=== PATIENT | male | born 2000 | race Caucasian/White ===

== ENCOUNTER 2019-01-21 21:22 | Emergency (ER) | payer BC ==
[2019-01-21] MEDS: Tetracaine HCl/PF 0.5% 4 ML Bottle EYERT ONE (21:59)
[2019-01-21] MEDS: Balanced Salt Solution Ophth Irrig 30 ML Bottle EYERT ONE (21:59)
--- NOTE | 2019-01-21 22:11 | EDM.PDOC ---
ED HPI GENERAL MEDICAL PROBLEM - General Chief Complaint: Eye Problems Stated Complaint: right eye foreign body Time Seen by Provider: 01/21/19 21:30 Source of Information: Reports: Patient History Limitations: Reports: No Limitations - History of Present Illness INITIAL COMMENTS - FREE TEXT/NARRATIVE: Patient is a 19-year-old was brought in by dad with foreign body right eye he was working with a black powder gun felt something go into the eye and then noticed a black dot on the inner aspect of the sclera right eye. Onset: Today Duration: Hour(s):, Constant Location: Reports: Face (Eyes) Quality: Reports: Ache Severity: Mild Improves with: Reports: None Worsens with: Reports: None Associated Symptoms: Reports: No Other Symptoms Right Eye Pain Score (Numeric/FACES): 1 - Related Data Allergies Allergy/AdvReac Type Severity Reaction Status Date / Time No Known Allergies Allergy Verified 01/21/19 21:28 Home Meds: Home Meds . [No Known Home Meds] 01/21/19 [History] Social & Family History - Tobacco Use Smoking Status *Q: Never Smoker Second Hand Smoke Exposure: No - Caffeine Use Caffeine Use: Reports: Coffee, Soda - Recreational Drug Use Recreational Drug Use: No ED ROS GENERAL - Review of Systems Review Of Systems: ROS reveals no pertinent complaints other than HPI. ED EXAM GENERAL W FULL EYE - Physical Exam Exam: See Below Exam Limited By: No Limitations General Appearance: Alert, WD/WN, No Apparent Distress Eye Exam: Right Eye: Other (Corneal abrasion 6:00 for a body in the sclera) Conjunctiva & Sclera: Right: Foreign Body (Foreign body sclera nasal angle) Cornea Exam: Right: Corneal Abrasion (Small corneal abrasion 6) Ears: Normal External Exam Nose: Normal Inspection, Normal Mucosa, No Blood Throat/Mouth: Normal Inspection, Normal Lips, Normal Teeth, Normal Gums, Normal Oropharynx, Normal Voice, No Airway Compromise Head: Atraumatic, Normocephalic Neck: Normal Inspection, Supple, Non-Tender, Full Range of Motion Respiratory/Chest: No Respiratory Distress, Lungs Clear, Normal Breath Sounds, No Accessory Muscle Use, Chest Non-Tender Cardiovascular: Normal Peripheral Pulses, Regular Rate, Rhythm, No Edema, No Gallop, No JVD, No Murmur, No Rub GI/Abdominal: Normal Bowel Sounds, Soft, Non-Tender, No Organomegaly, No Distention, No Abnormal Bruit, No Mass (Male) Exam: No Hernia, Normal Inspection, Normal Prostate, Circumcised (Female) Exam: Deferred Rectal (Males) Exam: Deferred Rectal (Female) Exam: Deferred Back Exam: Normal Inspection, Full Range of Motion, NT Extremities: Normal Inspection, Normal Range of Motion, Non-Tender, Normal Capillary Refill, No Pedal Edema ED EYE w/ Add Procedure - Eye Procedure Alcaine Drops Administered: Yes Eye FB Removal: Removal w/ Needle, Other Eye Irrigated w/ Saline (ccs): 10 Antibiotic Oinment/Drps Admin: Right Eye Course - Vital Signs Last Recorded V/S: Last Vital Signs Temp 98.2 F 01/21/19 21:23 Pulse 74 01/21/19 21:23 Resp 20 01/21/19 21:23 BP 139/87 01/21/19 21:23 Pulse Ox 100 01/21/19 21:23 - Orders/Labs/Meds Meds: Medications Discontinued Medications Generic Name Dose Route Start Last Admin Trade Name Aimee PRN Reason Stop Dose Admin Balanced Salt Solution 1 ml 01/21/19 21:56 01/21/19 21:59 Eye Stream Eye Rinse EYERT 01/21/19 21:57 1 drop ONETIME ONE Administration Tetracaine HCl 1 ml 01/21/19 21:56 01/21/19 21:59 Tetracaine 0.5% Steri-Unit Mitzi EYERT 01/21/19 21:57 1 drop ASDIRECTED ONE Administration Departure - Departure Time of Disposition: 22:36 Disposition: Home, Self-Care 01 Condition: Fair Clinical Impression: Corneal abrasion - Discharge Information *PRESCRIPTION DRUG MONITORING PROGRAM REVIEWED*: No *COPY OF PRESCRIPTION DRUG MONITORING REPORT IN PATIENT JEAN: No Referrals: PCP,None [Primary Care Provider] - Care Plan Goals: At this time before and body was identified in the nasal angle on the right eye we will ahead we went ahead and removed it also noticed a corneal abrasion with no foreign body irrigated directly at this time we'll send him home bacitracin was applied and an eye patch prior to discharge
[2019-01-21] MEDS: Bacitracin/Polymyxin B Ophth Oint 3.5 GM Tube EYERT SCH (22:29)
== END 2019-01-21 22:48 | disposition home or self-care (01) ==
LOC: LL.ED 21:22
DX: T15.11XA Foreign body in conjunctival sac, right eye, initial encounter (principal)
CPT/HCPCS: 65205; 99283; A9270-GY

== ENCOUNTER 2024-10-09 13:33 | Emergency (ER) | payer BC | END 2024-10-09 14:30 | disposition home or self-care (01) | LOC: LL.ED 13:33 | DX: S99.911A Unspecified injury of right ankle, initial encounter (principal); X50.1XXA Overexertion from prolonged static or awkward postures, initial encounter; Y93.33 Activity, BASE jumping | CPT/HCPCS: 73610-RT; 99283 ==